=== PATIENT | male | born 1980 | race Asian ===

== ENCOUNTER 2016-12-30 11:45 | Emergency (ER) | payer OTHER, BC ==
[~2016-12-30] VITALS: Ht 190.5 cm; Wt 143.8 kg
== END 2016-12-30 13:51 | disposition home or self-care (01) ==
LOC: ED 11:45
DX: S00.93XA Contusion of unspecified part of head, initial encounter (principal); S30.0XXA Contusion of lower back and pelvis, initial encounter; S13.8XXA Sprain of joints and ligaments of other parts of neck, initial encounter; M51.27 Other intervertebral disc displacement, lumbosacral region; V43.52XA Car driver injured in collision with other type car in traffic accident, initial encounter
CPT/HCPCS: 99283